=== PATIENT | female | born 1995 | race Caucasian/White ===

== ENCOUNTER 2024-07-20 11:53 | Outpatient (CLI) | payer BC, SELFPAY | END 2024-07-20 11:54 | disposition home or self-care (01) | PROVIDERS: Visit Provider Advanced Practice Midwife | DX: Z34.91 Encounter for supervision of normal pregnancy, unspecified, first trimester (principal); Z3A.10 10 weeks gestation of pregnancy | CPT/HCPCS: 87086 ==

== ENCOUNTER 2024-07-20 12:35 | Outpatient (CLI) | payer BC, SELFPAY | END 2024-07-20 12:36 | disposition home or self-care (01) | LOC: US 12:35 | PROVIDERS: Visit Provider Advanced Practice Midwife | DX: O36.80X0 Pregnancy with inconclusive fetal viability, not applicable or unspecified (principal); Z3A.10 10 weeks gestation of pregnancy | CPT/HCPCS: 76801; 87086 ==

== ENCOUNTER 2024-08-04 09:16 | Outpatient (CLI) | payer BC, SELFPAY | END 2024-08-04 09:17 | disposition home or self-care (01) | LOC: NFLDREF 08-06 20:12 | PROVIDERS: Visit Provider Advanced Practice Midwife | DX: Z34.01 Encounter for supervision of normal first pregnancy, first trimester (principal); Z67.10 Type A blood, Rh positive | CPT/HCPCS: 83020; 83021; 85660; 86592; 86703; 86704; 86706; 86762; 86787; 86803; 86850; 86900; 86901; 87340 ==

== ENCOUNTER 2024-09-27 07:57 | Outpatient (CLI) | payer BC, SELFPAY ==
--- NOTE | 2024-09-27 08:15 | CRLHL7_ITS ---
For Patients: As a result of the 21st Century Cures Act, medical imaging exams and procedure reports are released immediately into your electronic medical record. You may view this report before your referring provider. If you have questions, please contact your health care provider. OB ULTRASOUND SURVEY LMP: 05/11/2024. RAZIA by LMP: 02/15/2025. GA: 19 w, 6 d. INDICATION: Supervision of normal . TECHNIQUE: Real time grayscale imaging of the fetus was performed. Evaluate anatomy. Transabdominal. position: Breech. Cervix: Visualized. Technique: Transabdominal. Length of closed cervix: 3.4 cm. Placenta/cord: Anterior. Technique: Transabdominal. Placenta tip to internal OS: 3.7 cm. Umbilical Cord: 3-vessel cord. Placenta insertion: Central. Amniotic Fluid: 4.6cm SDP (greater than/equal to: 2- less than 8 cm). SURVEY: Observed Structures. Calvarium/Spine: Cerebellum: Yes. Cisterna Magna: Yes. Nuchal Fold: Yes. Lateral Ventricle: Yes. CSP: Yes. Midline Falx: Yes. Choroid Plexus: Yes. Spine: Yes. Abdomen: Stomach: Yes. Abd Cord Insertion: Yes. Urinary Bladder: Yes. Kidneys: Yes. Diaphragm: Yes. Face: Nose/lips: Yes. Orbital view: Yes. Profile: See impression. Limbs: Upper Extremities: Yes. Lower Extremities: Yes. Hands: Yes. Feet: Yes. Vascular: 4-Chamber Heart: Yes. LVOT: Yes. RVOT: Yes. 3VV: Yes. 3VTV: Yes. BPD: 4.5 cm. 19 w, 4 d, 35 percent. HC: 17.2 cm. 19 w, 5 d, 37 percent. AC: 16.1 cm. 21 w, 1 d, 85 percent. FL: 3.1 cm. 19 w, 5 d, 36 percent. FL/AC ratio: 19.37 percent. HC/AC ratio: 1.07. heart rate: 144 bpm. age by this US: 20 w, 0 d. RAZIA by this US: 02/14/2025. EFW: 351.1 g. Weight: 0 lbs, 12 oz. Percentile by RAZIA: 76 percent. IMPRESSION: 1. Concordance of clinical and sonographic dating. 2. Incomplete visualization of the profile. Remainder of the anatomic survey normal. Short-term follow-up recommended. Sen Yanez M.D. Diagnostic Radiologist [email or web address] [email or web address]/Dictated by: Sen Yanez MD @ 09/27/2024 10:58:00 AM (Electronically Signed)
== END 2024-09-27 07:58 | disposition home or self-care (01) ==
LOC: US 08:00
PROVIDERS: Visit Provider Advanced Practice Midwife
DX: Z34.92 Encounter for supervision of normal pregnancy, unspecified, second trimester (principal); Z3A.19 19 weeks gestation of pregnancy
CPT/HCPCS: 76805

== ENCOUNTER 2024-10-25 08:01 | Outpatient (CLI) | payer BC, SELFPAY ==
--- NOTE | 2024-10-25 08:15 | CRLHL7_ITS ---
For Patients: As a result of the Century Cures Act, medical imaging exams and procedure reports are released immediately into your electronic medical record. You may view this report before your referring provider. If you have questions, please contact your health care provider. RAZIA by LMP: 02/15/2025. GA: 23w, 6d. Single. INDICATION: Follow-up anatomy, profile. COMPARISON: 09/27/2024. CERVIX: Not visualized. POSITIONING: Breech. AMNIOTIC FLUID: 4.6 cm SDP. PLACENTA: Technique: Transabdominal. PLACENTA POSITION: Anterior. DOPPLER: heart rate: 145 bpm. IMPRESSION: The profile appears normal. Sen Yanez M.D. Diagnostic Radiologist [email or web address] bM/Dictated by: eSn Yanez MD @ 10/25/2024 8:46:00 PM (Electronically Signed)
== END 2024-10-25 08:02 | disposition home or self-care (01) ==
LOC: US 08:02
PROVIDERS: Visit Provider Advanced Practice Midwife
DX: Z36.2 Encounter for other antenatal screening follow-up (principal); Z3A.23 23 weeks gestation of pregnancy
CPT/HCPCS: 76816

== ENCOUNTER 2024-11-17 09:01 | Outpatient (CLI) | payer BC, SELFPAY | END 2024-11-17 09:02 | disposition home or self-care (01) | LOC: NFLDREF 11-19 16:10 | PROVIDERS: Visit Provider Advanced Practice Midwife | DX: Z34.02 Encounter for supervision of normal first pregnancy, second trimester (principal) | CPT/HCPCS: 86592 ==

== ENCOUNTER 2024-11-22 07:42 | Outpatient (CLI) | payer BC, SELFPAY | END 2024-11-22 07:43 | disposition home or self-care (01) | LOC: NFLDREF 11-23 14:22 | PROVIDERS: Visit Provider Advanced Practice Midwife | DX: Z34.90 Encounter for supervision of normal pregnancy, unspecified, unspecified trimester (principal) | CPT/HCPCS: 82951; 82952 ==

== ENCOUNTER 2025-01-20 10:56 | Outpatient (CLI) | payer BC, SELFPAY ==
[2025-01-21 10:52] LABS: Strep B DNA Probe POSITIVE (Negative)
[2025-01-21 10:55] LABS: Strep B Susceptibility Needed? No
== END 2025-01-20 10:57 | disposition home or self-care (01) ==
LOC: NFLDREF 10:56
PROVIDERS: Visit Provider Advanced Practice Midwife
DX: Z34.03 Encounter for supervision of normal first pregnancy, third trimester (principal)
CPT/HCPCS: 87081; 87653

== ENCOUNTER 2025-02-14 00:17 | Inpatient (IN) | payer BC, SELFPAY ==
[2025-02-13 23:37] VITALS: BP 135/81; PULSE 75; RESP 16; TEMP 36.8
[2025-02-13 23:54] LABS: Amnisure Rom* POSITIVE
[2025-02-14] VITALS (56 sets, daily range): BP systolic 109–155; BP diastolic 61–106; PULSE 66–150; RESP 14–18; TEMP 36.3–37; O2SAT 81–100; BMI 30.2
--- NOTE | 2025-02-14 00:15 | P.LDBA_ITS ---
Subjective History of Present Illness Date Seen: 02/14/25 Narrative: Patient is being admitted to Labor and Delivery for SROM. She is a 29 year old at 39 5/7 weeks gestation. Her full history and physical was dictated by Dr. Neri on 01/25/2025. Please see this for details. She is supported in labor by Pranav. SROM reported at 2130, clear fluid. Specific Issues/Plans : Pranav It's a boy! H&P completed 01/25/2025 by MD Daron # Failed 1hr GTT. Passes 3/4 values on 3hr GTT. No GDM. # GBS positive - No PCN allergy Ok with antibiotics in labor Imaging First trimester (07/20/24): Living IUP with gestational age of 10 weeks by LMP and 9 weeks 6 days by today`s crown-rump length. EDC based on LMP is 02/15/2025. Anatomy US (09/27/24): 1. Concordance of clinical and sonographic dating. 2. Incomplete visualization of the profile. Remainder of the anatomic survey normal. Short-term follow-up recommended. Follow-up US (10/25/24): IMPRESSION: The profile appears normal. 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 29 at 39 5/7 weeks gestation?? complicated by:??none Labor type: Spontaneous, Active labor?? Category 1 FHR pattern.??? Labor complicated by: GBS+?? GBS positive? PLAN:?? 1. Routine intrapartum cares as ordered. Continue with expectant management?? 2. Monitoring per policy, intermittent?? 3. Planning unmedicated . Desires water . Consent signed. Hep C negative. Candidate for analgesia of choice.??Will move her to tub room as soon as able.? 4. Patient encouraged to reposition and ambulate to promote physiologic labor and .?? 5. GBS prophylaxis initiated for GBS positive status. Will treat with antibiotics per protocol.? 6. Anticipate ? OB Exam Physical Exam Vital signs: Temp Pulse Resp BP 98.3 F 75 16 135/81 02/13/25 23:37 02/13/25 23:37 02/13/25 23:37 02/13/25 23:37 Narrative: Vitals Reviewed Constitutional:? Alert and oriented x3 HEENT:? Normocephalic, atraumatic Neck:? Supple Lungs:? Clear to auscultation bilaterally Heart:? Regular rate and rhythm, no murmur, rub or gallop Abdomen:? Soft, nontender, and gravid. Vertex by Ihsan's, confirmed with cervical exam. Extremities:? No edema or erythema Cervix: 7/90/0, palpable sutures NST: 120 bpm/moderate variability/accelerations present/decelerations absent/contractions every 2-3 min palpating strong
[2025-02-14 00:39] LABS: Hematocrit* 35.8 % (33.0-51.0); Hemoglobin* 11.9 gm/dL (12.0-16.0); Immature Granulocytes Abs Auto 0.05 K/uL (0.00-0.30); Immature Granulocytes Pct Auto 0.6 %; Lymphocytes Absolute Auto 2.01 K/uL (0.90-2.90); Mean Corpuscular HGB Conc 33 gm/dL (32-36); Mean Corpuscular Hemoglobin 28 pg (26-34); Mean Corpuscular Volume 84 fL (80-100); RDW Coefficient of Variation % 15.0 % (11.5-15.5); Red Blood Count* 4.24 m/uL (4.00-5.20); White Blood Count* 8.01 K/uL (4.50-11.00)
[2025-02-14] MEDS: AMPICILLIN 2 GM in 0.9 % SODIUM CHLORIDE Mini-bag 100 ML IVPB (00:45)
[2025-02-14] MEDS: LACTATED RINGERS 1000 ML 1,000 ML 125 ML IV (00:47)
[2025-02-14 01:15] LABS: Slide Review Reflex No
--- NOTE | 2025-02-14 03:18 | P.OBPN_ITS ---
Subjective Date Seen: 02/14/25 Narrative: Patient was admitted to Labor and Delivery for SROM. She is a 29 year old at 39 5/7 weeks gestation. She has progressed very well. Pranav is supporting her at the bedside. Around 2 AM she was found to be commpletely dilated, but visibly tensing her extremities. Was able to relax them but only for brief moments. Attempted to guide her with pressure and touch, but it was not suceessful. She is visibly pulling the baby up and not able to bear down into the push effectively often enough to make any progress. Encouraged position changes. Discussed fears and lots of encouragement given. Specific Issues/Plans [id number]: Pranav It's a boy! H&P completed 01/25/2025 by MD Daron # Failed 1hr GTT. Passes 3/4 values on 3hr GTT. No GDM. # GBS positive - No PCN allergy Ok with antibiotics in labor Imaging First trimester (07/20/24): Living IUP with gestational age of 10 weeks by LMP and 9 weeks 6 days by today`s crown-rump length. EDC based on LMP is 02/15/2025. Anatomy US (09/27/24): 1. Concordance of clinical and sonographic dating. 2. Incomplete visualization of the profile. Remainder of the anatomic survey normal. Short-term follow-up recommended. Follow-up US (10/25/24): IMPRESSION: The profile appears normal. 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 30 at 39 5/7 weeks gestation?? complicated by:??none Labor type: Spontaneous, Active labor?? Category 1 FHR pattern.??? Labor complicated by: GBS+?? GBS positive? PLAN:?? 1. Routine intrapartum cares as ordered. Continue with expectant management. Encouraged to try squatting, return to bathroom tub, etc? 2. Monitoring per policy, intermittent?? 3. Planning unmedicated . Desires water . Consent signed. Hep C negative. Candidate for analgesia of choice.??Will move her to tub room as soon as able.? 4. Patient encouraged to reposition and ambulate to promote physiologic labor and .?? 5. GBS prophylaxis dose given x 1 thus far in labor. 6. Anticipate ?
[2025-02-14] MEDS: AMPICILLIN 1 GM in 0.9 % SODIUM CHLORIDE Mini-bag 100 ML IVPB (04:41)
[2025-02-14] MEDS: OXYTOCIN 30 unit/500 ML in NS 30 UNIT/500 ML BAG 300 UNIT IVPB (05:54)
[2025-02-14] MEDS: LIDOCAINE 1 % PF 30 ML INJECTION (05:55)
[2025-02-14] MEDS: METHYLERGONOVINE MALEATE 0.2 MG/ML INJ IM (06:01)
--- NOTE | 2025-02-14 06:30 | PM.OBCN1 ---
OB - CN: HPI Date of Consult Time Seen by Provider: 06:30 Date Seen: 02/14/25 Consult date: 02/14/25 Requesting Physician: Daisy Reese CNM Primary Care Provider: Not a Local Provider Consult Narrative Narrative: The patient is a 29 year old G1, now P1 at 39.6 weeks gestation that was admitted to the Center on 02/14/25 for SROM. She delivered a viable male infant at 0542. Delivery complicated by retained placenta and 3b laceration. Prior to my arrival she was given 30u of pitocin, 0.2 mg of methergine x1, and 100 mcg of fetanyl. EBL at that time approximately 650 cc. History History 1 Elective abortions Para 0 Spontaneous abortions Hx # Term Pregnancies Ectopic pregnancies Hx # Pregnancies Multiple births Number of Living Children Labs GBS status: positive OB Labs: Lab Assessment Start: 02/14/25 00:09 Freq: ONCE Status: Complete Protocol: PC.OBGBS Activity Type Activity Date Activity User E-sign Co-sign Detail Recorded Client Recorded Date Recorded By Document 02/14/25 00:31 STEPHANIE No Response 02/14/25 00:34 STEPHANIE 02/14/25 00:31 Lab Assessment GBS Status positive Is Patient Allergic to Penicillin? No Treatment Required OK Maternal Blood Type A Maternal RH Factor Positive Evaluate Maternal Rubella Immune Status Immune Hepatitis B Surface Antigen Negative Maternal HIV Status Negative Maternal Syphillis (RPR) Status Negative [facility] Medical History No significant past medical history Surgical History Hx of wisdom tooth extraction ?K08.409 - Partial loss of teeth, unspecified cause, unspecified class (ICD-10) Hx of adenoidectomy ?Z90.89 - Acquired absence of other organs (ICD-10) Family History Father Cardiovascular disease Paternal Grandfather Cardiovascular disease Maternal Grandmother Diabetes Social History Narrative: SOCIAL Education: bachelors Work: play leader Partner: Trader Sam Lives with: Pranav Pets: dog Abuse: Denies past Special Diet: gluten free Ok with a blood transfusion: yes Culture or anglican beliefs: denies RISK FACTORS Exercise Times/wk: walks, mild Pilates Depression/Anxiety: denies HAKAN: 0 PHQ 9: 2 Seat Belt Use: Routinely Smoking: Denies past/present Alcohol/day: Denies while Caffeine: 0-1 coffee Drug Use: Denies past, partner present Chicken Pox: Yes as a child MRSA: Denies What is your current living situation?: I presently have a place to live Problems where you live: no known problems In the past 12 months, utilities in danger of being shut off: no In past 12 months, lack of transportation kept you from medical appts, meetings, work, or getting things needed for daily living: no In the past 12 mos, have been you worried that your food would run out before you had money to buy more?: never true In the past 12 mos, the food you bought just didn't last and you didn't have money to buy more?: never true Smoking Status: Never smoker How often does anyone, including family, friends and others, physically hurt you: never How often does anyone, including family, friends and others, insult or talk down to you: never How often does anyone, including family, friends and others, threaten you with harm: never How often does anyone, including family, friends and others, scream or curse at you: never Meds Home Medications and Allergies Home Medications ?Medication ?Instructions ?Recorded ?Confirmed ?Type ascorbic acid (vitamin C) 1,000 mg 1 g PO Q6H 07/20/24 02/13/25 History capsule magnesium glycinate 100 mg (as 600 mg PO QDAY 07/20/24 02/13/25 History glycinate) tablet vits 75-iron 28 mg-folic pkg PO 07/20/24 02/09/25 History acid 800 mcg-omega3 440 mg oral pack (One Daily ) omega-3 fatty acids 1,000 mg 1,000 mg PO QDAY 09/27/24 02/13/25 History capsule Allergies Allergy/AdvReac Type Severity Reaction Status Date / Time gluten Allergy Intermediate Gastrointestinal Verified 02/09/25 08:55 Upset OB - H&P: Exam Physical Exam: Vital signs: Temp Pulse Resp BP Pulse Ox 97.7 F 98 16 132/69 96 02/14/25 04:09 02/14/25 06:28 02/13/25 23:37 02/14/25 06:28 02/14/25 06:25 Narrative: Physical exam: General: No acute distress doing skin to skin with baby. Lower extremity very tense Psych: Alert and oriented x3, full affect HEENT: Normocephalic, atraumatic Lungs: Unlabored breathing Neuro: No focal deficit. Mentating appropriately Abdomen: Soft, nontender, nondistended. No rebound or guarding. Uterine tone firm 1 cm below umbilicus. Pelvic exam: Mons normal, clitoris normal, urethral meatus normal. Labia minora and majora normal in appearance bilaterally. Perineum and anus with 3b laceration. Unable to assess the vaginal vault as placenta was still retained and patient did not tolerate traction on placenta. Minimal bleeding from vaginal laceration at this point. 1 lap inserted vaginally for tamponade while awaiting OR. OB - Results Labs Labs: Short CBC 02/14/25 Range/Units 00:28 WBC 8.01 (4.50-11.00) K/uL Hgb 11.9 L (12.0-16.0) gm/dL Hct 35.8 (33.0-51.0) % Plt Count 199 (140-440) K/uL OB - CN: A/P Assessment and Plan (1) Retained placenta: Status: Acute (2) Type 3b perineal laceration: Status: Acute Plan - Given retained placenta, type 3b perineal laceration, and intolerance of exam as she does not have an epidural, recommend proceeding to the OR for exam under anesthesia, removal of retained placenta, and laceration repair. - Risks discussed with patient including: pain, bleeding, infections, and damages to surrouding structures. Reviewed anesthesia risks but deferred full discussion to anesthesia team. Postoperative care recommendations - Bowel regimen: Miralax QD, Senna BID, Simethicone Q4H PRN. Continue bowel regimen for 6-8 weeks depending on level of constipation. Avoid straining, constipation or diarrhea. Avoid sitting on the toilet for more than 10 mins. - Wound care: recommend rinsing with warm water using javed-care bottle and wiping with unscented wet wipes/clean towel after voids and bowel movements. Pat clean and dry. Do not rub. Avoid using toilet paper that can break off and stick to wound. Patient is so she will be hypoestrogenic. She can apply Premarin cream 2x per week at night vaginal and on perineal wound PRN. - Pain: 600mg of Ibuprofen Q6H PRN, 1000 mg of acetaminophen Q6H PRN, oxycodone 5 mg Q6H PRN, Dermo Plast spray PRN, perineal ice pack PRN. Sitz baths BID x 2 weeks, then PRN.
--- NOTE | 2025-02-14 06:40 | W.PM.VAGDE_ITS ---
OB Procedure Vag Delivery Mother Details Mother Details: The patient is a 29 year-old, 1, Para 0, admitted on 02/13/25 at 39 6/7 weeks gestation. Admission Date: 02/13/25 Additional Details Amniotic Membrane Status: SROM Amniotic Membrane Rupture Date: 02/13/25 Amniotic Membrane Rupture Time: 21:30 Amniotic Membrane Fluid Description: Clear Analgesia/Anesthesia Type: Local ( for comfort and prep for repair) and Fentanyl ( only) Waterbirth: No Pitcoin: Yes ( only) Intrapartal Events: Prolonged 2nd Stage >2.5 Hrs Labor Onset: 22:00 Complete: 02:00 Pushin:02 (Pushing was intermittent and minimally to not effective for the first hour. With next position changes) Heart: heart tones during second stage were category 2. Periods of maternal concidence detected and monitors adjusted. Concern for baby prompted hastening of delivery and Marianna and Pranav were made aware that we were concerned. Progress was evident with more rapid descent. Delivery Details Delivery Date: 02/14/25 Delivery Time: 05:42 Route of delivery: Gender: Male Viability: Alive; Heart Rate Present Position at Delivery: OA Delivery Details: Patient was admitted for active labor and progressed normally. Progress was very quick until complete, but then became protracted. SROM noted at 2130 with clear fluid and labor began a half hour later. Patient was complete at 0200 and pushing at 0202. The first hour of pushing was minimal to no progress due to Marianna's struggle to relax her perineum and focus the pushing power to moving the baby. Her mother joined to help support her and Pranav. After moving to the tub and trying to labor down a bit, she was able to let baby come down a little, which stimulated a little more natural pushing efforts. She continued to struggle with relaxing her perineum but did perfectly birthing her son. of a viable male at 0542 in reclined sitting position. Vertex delivered OA. No nuchal cord or shoulder dystocia. Body delivered easily and without incident. Baby had minimal to no cry effort and decreased tone with terminal mec noted. Wh [facility] nurse stimulated baby, cord was clamped and cut and baby was taken to the warmer. He recieved 2 min of PPV and responded well. APGARS were 5 at one minute and 9 at five minutes respectively. See nursing's notes in baby's chart. 3rd degree laceration quickly identified after getting the baby to the warmer. Dr Ho contacted and OR team soon after requested. Moderate bleeding intermittently without signs of placental release prompted pitocin to be started with patient consent. Soon after methergine given for further promotion of placental delivery and strong uterine tone. With moderate cord traction and abdominal compression of uterus partial cord evulsion was felt. Straight applied superior to the cord tear to stop the bleeding. No further cord traction done. Occasional fundal pressure applied to verify strong uterine tone. 100 mcg Fentanyl given per patient preference for her comfort, as well as local lidocaine to laceration. QBL 600 cc and calculated immediately prior to Dr Ho's arrival. Total after Dr Ho's repair and manual extraction was 1095.. Mother and baby stable; mother plans to breastfeed. Infant weight 8#. 1 Minute Interval Total Score: 5 5 Minute Interval Total Score: 9 Additional Details Shoulder Dystocia: No Placental Delivery Description: Manual Removal (Done in OR by Dr Ho, see her note) Procedure Done: Global Blood Loss: 1,095 (Total QBL) Laceration: Perineal - 3rd Degree (Repaired by Dr Ho in OR-see her note) Episiotomy Description: None Blood Loss Measurement Type: QBL (600 cc initially, then []) Bakri Used: No Sponge/Need Count Correct: Yes Cord Vessel Description: 3 Vessels Event Summary Status: Mother and infant were stable after delivery. Disposition: floor
--- NOTE | 2025-02-14 07:04 | W.PM.GYNPROC ---
Procedure Note Time Seen by Provider: 07:04 Date of procedure: 02/14/25 Will [facility] bill your pro fee for this procedure?: Yes Pre-op diagnosis: 1. Retained placenta 2. 3b perineal laceration Post-op diagnosis: 1. Retained placenta 2. 3b perineal laceration Procedure: 1. Exam under anesthesia 2. Manual removal of retained placenta. Abdominal ultrasound used to confirm complete removal 3. Repair of 3b perineal laceration Surgeon: Jessy Ho MD Procedure Description: ANESTHESIA: Spinal and 10 cc of 1% lidocaine FINDINGS: 1. Uterus firm 1 cm below umbilicus. Placenta still intrauterine 2. 3b laceration confirmed FLUIDS: 1000 mL ESTIMATED BLOOD LOSS: 650 cc prior to OR and 445 intraoperatively (1095 cc) URINE OUTPUT: 800 cc COMPLICATIONS: hemorrhage from retained placenta and vaginal laceration SPECIMEN: Placenta PREOP ANTIBIOTIC: 2 of cefoxitin Hemostatic agents/uterotonic: 30 u of pitocin, 1g of TXA DESCRIPTION OF PROCEDURE: The patient was taken to the operating room where spinal anesthesia was administered. One lap (originally from delivery tray) removed from vagina prior to prepping. She was prepared and draped in normal sterile fashion in the dorsal lithotomy position in yellow fin/candy cane stirrups, taking care to avoid lower extremity hyperextension, hyperflexion or compression. A surgical time-out was performed with the entire operative staff per protocol. Perioperative antibiotics were given and pneumoboots were placed and activated. EUA revealed the above findings. Bladder was drained with delaney catheter. Manual removal of placenta performed with gentle intrauterine sweep. Abdominal ultrasound performed after showing thin endometrial stripe without evidence of retained products in the sagittal and transverse view. Perineum inspected and a 3b laceration was noted. Rectal exam performed to confirm tear and internal anal sphincter identified and intact with >50% avulsion of the external anal sphincter. Operators? gloves changed. Attention was then turned to the anal sphincter. Terri clamps were placed on the disrupted edges, and 0 vicryl used to reapproximate the sphincter in an interrupted fashion with four stitches. Before these were tied down a rectal exam confirmed no retained sutures in the rectum and good sphincter tone with tightening of the sutures. Additional deep stitches were placed proximal to the sphincter to provide for a more substantial perineal body (all the while with a finger in the rectum). The remainder of the tear was repaired as a typical 2nd degree laceration with a running 2-0 vicryl stitch. There was no involvement of the anal mucosa. The skin was closed with 2-0 vicryl. Premarin cream impregnated vaginal packing placed. Due for removal at 2015 later today. Surgical debrief performed and specimen reviewed. Specimen (placenta) was sent to pathology. 3 vessel cord and intact placenta. The patient tolerated the procedure well. Sponge, lap and needle counts were correct x 2. The patient was taken to the recovery room in stable condition. Following the repair, she was counseled on the procedure and precautions for return to care. Strong bowel regimen instructions reviewed. A rectal exam was performed at the beginning and end of repair and was without e/o suture through rectum or sphincter injury.
[2025-02-14] MEDS: cefOXitin 2 GM in 0.9 % SODIUM CHLORIDE Mini-bag 100 ML IVPB (07:35)
[2025-02-14] MEDS: LIDOCAINE 1% MDV 20 ML INJECTION (08:00)
[2025-02-14] MEDS: ESTROGENS, CONJUGATED VAGINAL 0.625 MG/G CREAM 1 APPLIC VAGINAL (08:10)
--- NOTE | 2025-02-14 08:23 | SUR.OPER ---
PATIENT ENTERED THE OR WITH ONE SPONGE PLACED IN THE VAGINA. DR. RAZO REMOVED THIS SPONGE BEFORE THE PATIENT WAS VAGINALLY PREPPED IN THE OR. ALL OR COUNTS WERE CORRECT AT THE END OF THE PROCEDURE.
--- NOTE | 2025-02-14 08:25 | P.ANES_ITS ---
Anesthesia Charges Start Date/Time Anesthesia Start Date: 02/14/25 Anesthesia Start Time: 07:13 Stop Date/Time Anesthesia Stop Date: 02/14/25 Anesthesia Stop Time: 08:25 Summary Emergency: OCCUPATIONAL THERAPY INSTRUCTOR Coding CPT Codes CPT Codes: ANESTH VAGINAL PROCEDURES - 56636 ([id number]) P2 - PATIENT W/MILD SYST DISEASE, QK - POULTRY FARMER 2-4 CNCRNT ANES PROC, QX - OCCUPATIONAL THERAPY INSTRUCTOR SVC W/ MD MED DIRECTION Additional Codes: Summary - Emergency: OCCUPATIONAL THERAPY INSTRUCTOR ([id number])
--- NOTE | 2025-02-14 08:25 | W.ANESCHARGE ---
Anesthesia Charges Start Date/Time Anesthesia Start Date: 02/14/25 Anesthesia Start Time: 07:13 Stop Date/Time Anesthesia Stop Date: 02/14/25 Anesthesia Stop Time: 08:25 Summary Emergency: CONSTRUCTION TEACHER Coding CPT Codes CPT Codes: ANESTH VAGINAL PROCEDURES - 10182 ([id number]) P2 - PATIENT W/MILD SYST DISEASE, QK - POULTRY AND FISH BUTCHER 2-4 CNCRNT ANES PROC, QX - CONSTRUCTION TEACHER SVC W/ MD MED DIRECTION Additional Codes: Summary - Emergency: CONSTRUCTION TEACHER ([id number])
--- NOTE | 2025-02-14 08:32 | SUR.OPER ---
OB RN INFORMED OR STAFF OF ONE SPONGE PLACED IN THE PATIENT'S VAGINA AT THE END OF THE OR CASE. OB SPONGE WAS ACCOUTED FOR AT THE END OF THE OR CASE.
--- NOTE | 2025-02-14 09:00 | SUR.PHASEI ---
PATIENT MET DISCHARGE CRITERIA PER ANESTHESIA
--- NOTE | 2025-02-14 09:01 | P.ANES_ITS ---
Anesthesia Charges Start Date/Time Anesthesia Start Date: 02/14/25 Anesthesia Start Time: 07:13 Stop Date/Time Anesthesia Stop Date: 02/14/25 Anesthesia Stop Time: 08:25 Summary Emergency: MARGARITO Coding CPT Codes CPT Codes: ANESTH VAGINAL PROCEDURES - 89530 ([id number]) QK - MULTIPLE PUNCH PRESS OPERATOR 2-4 CNCRNT ANES PROC, QX - DRYWALLER SVC W/ MD MED DIRECTION, P2 - PATIENT W/MILD SYST DISEASE Additional Codes: Summary - Emergency: MARGARITO ([id number])
--- NOTE | 2025-02-14 09:01 | W.ANESCHARGE ---
Anesthesia Charges Start Date/Time Anesthesia Start Date: 02/14/25 Anesthesia Start Time: 07:13 Stop Date/Time Anesthesia Stop Date: 02/14/25 Anesthesia Stop Time: 08:25 Summary Emergency: MARGARITO Coding CPT Codes CPT Codes: ANESTH VAGINAL PROCEDURES - 29196 ([id number]) QK - PIE MAKER 2-4 CNCRNT ANES PROC, QX - COLLEGE TEACHER SVC W/ MD MED DIRECTION, P2 - PATIENT W/MILD SYST DISEASE Additional Codes: Summary - Emergency: MARGARITO ([id number])
[2025-02-14] MEDS: SENNOSIDES 1 TAB TABLET PO (10:16)
[2025-02-14] MEDS: IBUPROFEN 600 MG TABLET PO ×2 (11:19→20:15)
[2025-02-14] MEDS: ACETAMINOPHEN 500 MG TABLET 1000 MG PO (16:41)
[2025-02-15] VITALS (11 sets, daily range): BP systolic 98–118; BP diastolic 63–79; PULSE 77–104; RESP 16–18; TEMP 36.4–37; O2SAT 96–98
[2025-02-15] MEDS: SENNOSIDES 1 TAB TABLET PO ×2 (00:36→08:10)
[2025-02-15] MEDS: IBUPROFEN 600 MG TABLET PO ×3 (03:56→18:13)
[2025-02-15 07:35] LABS: Hemoglobin* 7.8 gm/dL (12.0-16.0)
--- NOTE | 2025-02-15 07:54 | PM.OBPNVD1 ---
OB - PN:Subj Subjective Date Seen: 02/15/25 Narrative: Marianna is a 29 y.o. who was admitted to [facility] for labor.? She had an uncomplicated NVD with a 3rd degree tear and retained placenta requiring manual removal and tear repair in the OR.? Today her Hgb is 7.8, we discussed a blood transfusion today and she is agreeable. She denies shortness of breath or feeling dizzy when up, reports she is tired. The patient feels well.? The pain is well controlled with current medications.? She has no new complaints.? She is breast feeding and reports things are going well.? the patient has done well.? Vitals have been stable.? She has remained afebrile.? Has a good appetite, is tolerating a general diet.? She is voiding without difficulty.? She is passing gas and has not had a bowel movement.? She is ambulating and denies any dizziness.? Has Small amount of rubra lochia.? OB - PN: Obj Exam Physical Exam: Vital signs: Temp Pulse Resp BP Pulse Ox O2 Del Method 97.8 F 84 16 118/75 97 Room Air 02/15/25 05:15 02/15/25 05:15 02/15/25 05:15 02/15/25 05:15 02/15/25 05:15 02/15/25 05:15 Narrative: GENERAL APPEARANCE:? normal affect, alert, no distress? MOOD:? appropriate? HEENT: normocephalic, neck supple, full ROM? CHEST:? Symmetrical chest wall movement.? Normal respiratory effort.? Clear to auscultation ? HEART:? regular rate and rhythm? ABDOMEN:? soft, non-tender. Uterine fundus is firm, at Umbilicus, Midline and is appropriate for the stage of recovery.? Bowel sounds present.? PERINEUM:? mild edema of the perineum, there is a 3rd degree laceration that is healing well.? EXTREMITIES:? normal and no edema? OB - PN: Obj Data Labs Labs: Laboratory Results - last 24 hr 02/15/25 07:25 Hgb 7.8 L* OB - PN: A/P Delivery Assessment and Plan (1) Retained placenta: Status: Acute (2) Type 3b perineal laceration: Status: Acute (3) care and examination immediately after delivery: Status: Acute (4) Lactating mother: Status: Acute (5) PPH ( hemorrhage): Problem details: 1095mL Status: Acute Plan day: 1 Plan: routine care Comments: G 1 P 1 status post NVD complicated by hemorrhage, retained placenta and 3b perineal laceration. ??? 1.? Continue route PP cares? 2.? .? May see if desired? 3.? Anticipate discharge home tomorrow? 4. ?Acute anemia.? 1 unit PRBC ordered. Iron supplement ordered
[2025-02-15] MEDS: ACETAMINOPHEN 500 MG TABLET 1000 MG PO ×2 (08:10→21:33)
[2025-02-15 15:38] LABS: Hemoglobin* 9.6 gm/dL (12.0-16.0)
--- NOTE | 2025-02-15 20:18 | P.DS_ITS ---
DS: Providers Provider Date Seen: 02/15/25 Date of admission: 02/14/25 00:17 Primary care physician: Not a Local Provider Admitting Clinician: Daisy Reese CNM Attending Physician on discharge: Amanda Salgado CNM Date of Discharge: 02/15/25 DS: Diagnosis Discharge Diagnosis (1) care and examination immediately after delivery: Status: Acute (2) Lactating mother: Status: Acute Exam Narrative: Exam Narrative: see prior note from today for exam Const: Vital Signs, click to edit/add: Vital Signs - 24 hr 02/15/25 00:12 02/15/25 05:15 02/15/25 09:30 Temperature 98.1 F 97.8 F 98.1 F Pulse Rate Pulse Rate [Right Pulse Oximeter] 85 84 99 Respiratory Rate 16 16 16 Blood Pressure Blood Pressure [Ri ght Arm] 98/63 118/75 118/79 Pulse Oximetry 96 97 98 Oxygen Delivery Me thod Room Air Room Air Room Air 02/15/25 10:17 02/15/25 10:40 02/15/25 11:10 Temperature 98.0 F 97.8 F 98.1 F Pulse Rate 104 H 99 90 Pulse Rate [Right Pulse Oximeter] Respiratory Rate 16 16 16 Blood Pressure 118/78 108/70 103/68 Blood Pressure [Ri ght Arm] Pulse Oximetry 97 96 96 Oxygen Delivery Me thod Room Air Room Air Room Air 02/15/25 11:39 02/15/25 12:08 02/15/25 12:18 Temperature 97.5 F L 98.0 F 98.0 F Pulse Rate 88 77 Pulse Rate [Right Pulse Oximeter] 77 Respiratory Rate 18 16 16 Blood Pressure 115/73 104/63 Blood Pressure [Ri ght Arm] 104/63 Pulse Oximetry 98 97 97 Oxygen Delivery Me thod Room Air Room Air Room Air 02/15/25 13:08 02/15/25 16:00 Temperature 98.6 F 98.1 F Pulse Rate 84 Pulse Rate [Right Pulse Oximeter] 90 Respiratory Rate 16 16 Blood Pressure 107/66 Blood Pressure [Ri ght Arm] 117/76 Pulse Oximetry 96 96 Oxygen Delivery Me thod Room Air Room Air Documenting provider has reviewed patient's vital signs: yes OB - DS: Summary Hospital Course Hospital Course: Marianna was seen earlier today, she is requesting discharge this evening as her is ill and she would like to go home to be with him. They live with her parents and states her mom will be there to help them. She received 1 unit of PRBC today and reports she is feeling well with more energy now. Please see prior note for other details. Peripartum Data delivery method: Vaginal Laceration description: Vaginal - 3rd Degree Procedures: Procedures Operation Date: 02/14/25 06:30 Actual Procedure Side Surgeon p EXAM UNDER ANESTHESIA, 3B Vaginal Laceration Repair, MANUAL REMOVAL OF PLACENTA Not Applicable Jessyliliana Ho MD complications: none [place] Infant Gender: Male Discharge Plan: Home Status at Discharge Functional status at discharge: independent ambulation Overall status at discharge: patient is progressing back to baseline Time Spent with Patient Time attestation: Total time spent providing and/or coordinating discharge services: Time spent: Less than 30 minutes Discharge Plan Discharge Disposition: Home, Self-Care Date of Admission: 02/14/25 00:17 Attending Provider on Discharge: Amanda Salgado Primary Care Provider: Provider,Not a Local Condition: Stable Anticipated Discharge Date/Time: 02/15/25 21:30 Discharge Medications: New sennosides [Senna Lax] 8.6 mg Tablet 8.6 mg PO BID Qty: 120 0RF polyethylene glycol 3350 17 gram Powder In Packet 17 g PO DAILY Qty: 30 1RF acetaminophen 500 mg Tablet 1,000 mg PO Q6H PRNQty: 0 0RF ferrous sulfate 325 mg (65 mg iron) Tablet 325 mg PO Q48H Qty: 30 0RF ibuprofen 600 mg Tablet 600 mg PO Q6H PRNQty: 60 0RF Dermoplast (with menthol) 20-0.5 % Aerosol 1 spray topical QID PRNQty: 0 0RF Continued magnesium glycinate 100 mg tablet 600 mg PO QDAY ascorbic acid (vitamin C) 1,000 mg capsule 1 g PO Q6H One Daily [phone] mg-mcg-mg combo pack PO omega-3 fatty acids 1,000 mg capsule 1,000 mg PO QDAY Discharge Orders: Discharge Order (Routine); Ordered 02/15/25 Ordered By: Amanda Salgado Patient Education: OB Over the Counter Medication Information, OB Vaginal/Breast Feeding Additional Instructions: Discharge instructions were reviewed with the patient including signs and symptoms of infection and home going medications Nothing vaginally for 6 weeks: no tampons or intercourse Off Work or School for 6 weeks 2-week visit: discuss infant feeding concerns, review control options and screen for anxiety/depression. 6-week visit for an annual exam. consultation services are available to all mothers and babies for the first year after delivery.? To make an appointment, please call [phone]. Activity Level: Activity as Tolerated Discharge Diet: Regular Follow Up Appointments: Provider,Not a Local [Primary Care Provider, Family Practice] [facility] [Provider Group] Forms: Patient Belongings, MyHealth Info Instructions
== END 2025-02-15 22:05 | disposition home or self-care (01) | DRG 541 ==
LOC: OB OUT 00:17 → OB 00:17
PROVIDERS: Advanced Practice Midwife; Obstetrics & Gynecology; Admitting Provider Midwife; Visit Provider Midwife
PROC: 0UQG0ZZ Repair Vagina, Open Approach (ICD-10-PCS; principal; 2025-02-14 06:30)
DX: O99.824 Streptococcus B carrier state complicating childbirth (principal); O70.22 Third degree perineal laceration during delivery, IIIb; O69.89X0 Labor and delivery complicated by other cord complications, not applicable or unspecified; O72.0 Third-stage hemorrhage; O63.1 Prolonged second stage (of labor); O90.81 Anemia of the puerperium; D62 Acute posthemorrhagic anemia; Z37.0 Single live birth; Z3A.39 39 weeks gestation of pregnancy
CPT/HCPCS: 00940; 36415; 36430; 84112; 85018; 85025; 86592; 86850; 86900; 86901; 86922; 88307; 99140; G0463; J2003; A4314; A9270; J0290; J0694; J1100; J1885; J2210; J2250; J2405; J2590; J2704; J3010; J7120; P9016

== ENCOUNTER 2025-02-28 11:45 | Outpatient (CLI) | payer BC, SELFPAY ==
--- NOTE | 2025-02-28 13:00 | CRLHL7_ITS ---
For Patients: As a result of the Century Cures Act, medical imaging exams and procedure reports are released immediately into your electronic medical record. You may view this report before your referring provider. If you have questions, please contact your health care provider. INDICATION: Other immediate hemorrhage COMPARISON: None. TECHNIQUE: 2D hess-scale and color Doppler images were acquired of the pelvis using a transabdominal approach. FINDINGS: Sonographic images demonstrate a normal size and smooth outer contour of the uterus. Uterus measures 9.6 cm in length by 6.2 cm in AP diameter by 1.3 cm in transverse dimension. The myometrium has a normal uniform echotexture. Endometrial lining measures 4 millimeters. Heterogeneous nonvascular fluid distends the endometrial canal. No suspicious vascularity. The right ovary measures 4.0 x 2.3 x 2.6 cm in size and the left ovary measures 3.5 x 2.1 x 3.8 cm. The ovaries demonstrate normal arterial and venous blood flow on color Doppler analysis. There are no suspicious fluid collections within the cul-de-sac. IMPRESSION: Blood products within the endometrial canal. No evidence of retained products. Dictated by Sen Yanez MD @ 02/28/2025 8:31:14 PM (Electronically Signed)
== END 2025-02-28 11:46 | disposition home or self-care (01) ==
LOC: US 11:46
PROVIDERS: Visit Provider Physician Assistant
DX: O72.1 Other immediate postpartum hemorrhage (principal)
CPT/HCPCS: 76830; 76856

== ENCOUNTER 2025-03-28 10:38 | Outpatient (CLI) | payer BC, SELFPAY ==
[2025-03-28 12:40] LABS: Bacterial Vaginosis* Negative (Negative); Candida glab/krus NOT DETECTED (No Detected)
== END 2025-03-28 10:39 | disposition home or self-care (01) ==
LOC: NFLDREF 10:39
PROVIDERS: Visit Provider Advanced Practice Midwife
DX: N89.8 Other specified noninflammatory disorders of vagina (principal)
CPT/HCPCS: 81513; 87481; 87661